=== PATIENT | male | born 1985 | race Caucasian/White ===

== ENCOUNTER → 2018-11-01 | Outpatient (REF) | payer BC ==
[2018-11-01 13:55] LABS: ALT/SGPT 56 U/L (12-78); BILIRUBIN,TOTAL 0.7 MG/DL (0.2-1.0); BLOOD UREA NITROGEN 21 MG/DL (7-18); CALCIUM LEVEL 8.4 MG/DL (8.5-10.1); CARBON DIOXIDE LEVEL 25 MEQ/L (21-32); CHLORIDE LEVEL 107 MEQ/L (98-107); CHOLESTEROL LEVEL 180 MG/DL (<200); CHOLESTEROL RISK RATIO 5.294 (<5); CREATININE FOR GFR 0.88 MG/DL (0.70-1.30); GLOMERULAR FILTRATION RATE > 60.0 (>60); GLUCOSE, FASTING 136 MG/DL (70-100); HDL CHOLESTEROL 34 MG/DL (>40); LDL CHOLESTEROL 119 MG/DL (<100); NON-HDL-C 146 MG/DL; POTASSIUM SERUM 4.2 MEQ/L (3.5-5.1); SODIUM LEVEL 139 MEQ/L (136-145); TRIGLYCERIDES LEVEL 137 MG/DL (<150)
[2018-11-01 15:46] LABS: HEMOGLOBIN A1c 5.8 %
== END ==
LOC: M LABDRAW1 12:30
PROVIDERS: ATTEND Physician Assistant
DX: E66.9 Obesity, unspecified (principal)

== ENCOUNTER 2019-02-25 18:05 | Emergency (ER) | payer BC ==
[~2019-02-25] VITALS: Ht 185.4 cm; Wt 127.9 kg
--- NOTE | 2019-02-25 19:21 | REP ---
Clinical: Trauma. Technique: AP, lateral, bilateral oblique views of the right hand. Findings: There is a subtle fracture at the tip of the fourth digit distal phalanx consistent with crush injury. No further acute fracture or dislocation identified. Impression: Subtle nondisplaced fracture at the tip of the fourth digit distal phalanx. Electronically Signed by Kiran Caban MD 02/25/2019 07:13 P
[2019-02-25] MEDS ORDERED: LIDOCAINE 1% MDV 20ML VIAL IM ONE (19:45)
[2019-02-25] MEDS ORDERED: ADACEL/BOOSTRIX VACCINE (DIPHTH/PERTUSS/ACELL/TETANUS)0.5ML SYR (90715) IM ONE (19:45)
[2019-02-25] MEDS ORDERED: AUGM875T28 PO (20:05)
[2019-02-25] MEDS ORDERED: AUGMENTIN 875 MG TAB PO ONE (20:15)
[2019-02-25 20:16] VITALS: BP 123/80
== END 2019-02-25 20:27 | disposition home or self-care (01) ==
LOC: M ED 18:05
DX: S61.304A Unspecified open wound of right ring finger with damage to nail, initial encounter (principal); W31.2XXA Contact with powered woodworking and forming machines, initial encounter; Y92.098 Other place in other non-institutional residence as the place of occurrence of the external cause

== ENCOUNTER → 2019-05-10 | Outpatient (CLI) | payer BC ==
[~2019-05-10] MED LIST: AUGM875T28 PO
--- NOTE | 2019-05-11 04:22 | REP ---
Clinical: History of epididymal mass. Comparison: 11/01/2018. Technique: Real time noriega scale and color Doppler evaluation using linear high frequency transducer. Findings: The bilateral testicles and epididymi are essentially normal in contour, size, echogenicity, and vascularity. No obvious mass lesion appreciated. Previously identified left epididymal nodule for currently identifiable. No hydrocele. Mild left-sided varicoceles measure up to 3.9 mm at rest and 4.1 mm diameter on Valsalva. Right testicle measures 5.5 x 2.8 x 3.2 cm. Left testicle measures 5.3 x 2.6 x 3.0 cm. Impression: Mild left-sided varicoceles are suggested. Previously identified left epididymal nodule is not visualized on current examination. Electronically Signed by Kiran Caban MD 05/11/2019 04:15 A
== END ==
LOC: M RAD 10:46
PROVIDERS: ATTEND Urology
DX: N50.3 Cyst of epididymis (principal)